=== PATIENT | female | born 1970 | race African-American/Black ===

== ENCOUNTER 2019-11-23 12:16 | Outpatient (CLI) | payer OTHER, SELFPAY ==
[2019-11-23 12:32] LABS: Basophils Percent Auto 0.2 % (0.2-1.2); Eosinophils Percent Auto 0.7 % (0-4.4); Hemoglobin 13.2 g/dL (12.0-15.0); Immature Granulocyte Absolute 0.02 K/mm3 (0.00-0.031); Immature Granulocyte Percent A 0.3 % (0-0.5); Lymphocytes Absolute Auto 2.17 K/mm3 (0.9-3.2); Lymphocytes Percent Auto 37.5 % (18.3-44.2); Mean Corpuscular HGB Conc 32.2 g/dl (32-36); Mean Corpuscular Hemoglobin 28.6 pg (26-34); Mean Corpuscular Volume 88.9 fl (80-100); Mean Platelet Volume 9.3 fl (7.4-10.4); Monocytes Absolute Auto 0.4 K/mm3 (0.1-0.6); Monocytes Percent Auto 7.3 % (2.6-8.5); Neutrophils Absolute Auto 3.1 K/mm3 (1.3-6.7); Platelet Count Result 318 k/mm3 (150-375); Red Blood Count 4.61 M/mm3 (4.2-5.4); White Blood Count 5.8 K/mm3 (4.5-10.0)
[2019-11-23 12:53] LABS: Sodium 137 mmol/L (137-145)
[2019-11-23 13:01] LABS: Hemoglobin A1C 6.1 % (<5.7)
[2019-11-23 13:05] LABS: Alanine Aminotransferase 25 U/L (4-35); Albumin Level 4.2 g/dL (3.5-5.1); Alkaline Phosphatase 113 U/L (38-126); Aspartate Amino Transferase 23 U/L (14-36); Bilirubin,Total 0.4 mg/dL (0.2-1.3); Blood Urea Nitrogen 14 mg/dL (7-17); Calcium 9.3 mg/dL (8.4-10.2); Carbon Dioxide 27 mmol/L (22-30); Chloride 102 mmol/L (98-107); Cholesterol 226 mg/dL (0-200); Estimated Glomerular Filt Rate > 60; Glucose 96 mg/dL (65-105); HDL Direct 37 mg/dL; LDL Cholesterol Direct 153 mg/dL; Potassium 4.3 mmol/L (3.4-5.0); Triglycerides 95 mg/dL (<150)
[2019-11-23 13:22] LABS: Thyroid Stimulating Hormone 0.984 uIU/mL (0.465-4.680)
== END 2019-11-23 12:17 | disposition home or self-care (01) ==
PROVIDERS: PCP Family Medicine; Visit Provider Family Medicine
DX: I10 Essential (primary) hypertension (principal); E04.9 Nontoxic goiter, unspecified; R73.01 Impaired fasting glucose; E78.2 Mixed hyperlipidemia
CPT/HCPCS: 36415; 80053; 80061; 83036; 84443; 85025

== ENCOUNTER 2020-03-07 09:04 | Outpatient (CLI) | payer OTHER, SELFPAY ==
--- NOTE | ~2020-03-07 | MM_ITS ---
EXAMINATION: MM screening [facility] w [facility]anor HISTORY: Screening TECHNIQUE: Craniocaudal and mediolateral oblique 3-D tomosynthesis images were obtained and synthetic 2-D images were generated. CAD analysis was submitted and interpreted. COMPARISON: Comparison to multiple prior studies sequentially, with oldest reviewed study dated 08/2015. BREAST PARENCHYMAL COMPOSITION: There are scattered areas of fibroglandular density. FINDINGS: There is no evidence of suspicious mass, calcification, or architectural distortion to sugg est malignancy in either breast. There has been no suspicious interval change. IMPRESSION: 1. No mammographic evidence of malignancy. 2. Recommend routine screening mammography in one year. BI-RADS Category 1: Negative Reviewed, dictated and finalized at location A.
== END 2020-03-07 09:05 | disposition home or self-care (01) ==
LOC: ANHIMG 09:06
PROVIDERS: PCP Family Medicine; Visit Provider Obstetrics & Gynecology
DX: Z12.31 Encounter for screening mammogram for malignant neoplasm of breast (principal)
CPT/HCPCS: 77063; 77067

== ENCOUNTER → 2021-01-11 04:04 | Outpatient (CLI) | payer OTHER, SELFPAY ==
[2021-01-12 01:35] LABS: SARS-CoV-2 RNA PCR Negative
== END ==
PROVIDERS: PCP Family Medicine; Visit Provider Physician Assistant
DX: R68.89 Other general symptoms and signs (principal); Z20.822 Contact with and (suspected) exposure to COVID-19
CPT/HCPCS: C9803; U0003; U0005

== ENCOUNTER 2021-04-05 07:42 | Outpatient (CLI) | payer OTHER, SELFPAY ==
--- NOTE | ~2021-04-05 | MM_ITS ---
EXAMINATION: MM screening [facility] BI w nicanor HISTORY: Screening mammogram TECHNIQUE: Craniocaudal and mediolateral oblique 3-D tomosynthesis images were obtained and synthetic 2-D images were generated. CAD analysis was submitted and interpreted. COMPARISON: 03/07/2020, 10/11/2018 BREAST PARENCHYMAL COMPOSITION: The breasts are almost entirely fatty. FINDINGS: There is no evidence of suspicious mass, calcification, or architectural distortion to sugg est malignancy in either breast. There has been no suspicious interval change. IMPRESSION: 1. No mammographic evidence of malignancy. 2. Recommend routine screening mammography in one year. BI-RADS Category 1: Negative Reviewed, dictated and finalized at location A. FILLER
== END 2021-04-05 07:43 | disposition home or self-care (01) ==
LOC: ANHIMG 07:43
PROVIDERS: PCP Family Medicine; Visit Provider Obstetrics & Gynecology
DX: Z12.31 Encounter for screening mammogram for malignant neoplasm of breast (principal)
CPT/HCPCS: 77063; 77067

== ENCOUNTER 2021-04-10 15:28 | Outpatient (CLI) | payer OTHER, SELFPAY ==
--- NOTE | ~2021-04-10 | XR_ITS ---
EXAMINATION: XR foot RT min 3V DATE: 04/10/2021 15:57 INDICATION: Lateral right foot pain and swelling. TECHNIQUE: 4 views of right foot were obtained. COMPARISON: None. FINDINGS: There is mild hallux valgus. No fracture. There is mild osteoarthritis of talonavicular edgar nt. IMPRESSION: 1. No fracture. Reviewed, dictated and finalized at location A. LOPE ADDRESSER IMPRESSION: 1. No fracture.
[2021-04-10 16:23] LABS: Alanine Aminotransferase 16 U/L (4-35); Albumin Level 4.2 g/dL (3.5-5.1); Alkaline Phosphatase 113 U/L (38-126); Anion Gap 7 mmol/L (8-16); Aspartate Amino Transferase 17 U/L (14-36); Bilirubin,Total 0.2 mg/dL (0.2-1.3); Blood Urea Nitrogen 13 mg/dL (7-17); Carbon Dioxide 25 mmol/L (22-30); Chloride 106 mmol/L (98-107); Estimated Glomerular Filt Rate > 60; Glucose 94 mg/dL (65-110); Potassium 4.3 mmol/L (3.4-5.0); Sodium 138 mmol/L (137-145)
[2021-04-10 16:49] LABS: Calcium 9.7 mg/dL (8.4-10.2)
== END 2021-04-10 15:29 | disposition home or self-care (01) ==
PROVIDERS: PCP Family Medicine; Visit Provider Family Medicine
DX: M79.671 Pain in right foot (principal); I10 Essential (primary) hypertension
CPT/HCPCS: 36415; 73630; 80053

== ENCOUNTER → 2021-05-02 07:29 | Outpatient (CLI) | payer OTHER, SELFPAY ==
--- NOTE | ~2021-05-02 | MR_ITS ---
EXAMINATION: MR ankle RT wo con DATE: 05/02/2021 08:39 INDICATION: Posterior tibial tendon dysfunction with right foot and ankle pain and swelling, weakness and limited range of motion. TECHNIQUE: Magnetic resonance imaging (MRI) of the right ankle was performed without intravenous cont rast. Sequences included sagittal, coronal, and axial proton-density weighted fast spin echo without and with fat saturation. COMPARISON: None. FINDINGS: Medial ankle ligaments: Deep and superficial deltoid ligaments as well as the spring ligament are normal. Lateral ankle ligaments: The anterior and posterior inferior tibiofibular ligaments are normal. The anterior talofibular, calc aneofibular and posterior talofibular ligaments are normal. Tendons: Achilles tendon is normal. The peroneus longus and brevis tendons are normal. The tibialis anterior a nd extensor hallucis longus and extensor digitorum longus tendons are normal. The tibialis posterior, flexor digitorum longus and flexor hallucis longus tendons are normal. Plantar fascia: Plantar aponeurosis is normal. Bones/other: Bone alignment is normal. Mild mild subarticular edema along both sides of the dorsal aspect of the r eticulation between the cuboid and the lateral cuneiform without evident fracture line which could be related to osteoarthritis or bone contusion. Otherwise normal marrow signal with no fracture or path ologic marrow replacing process. Remaining joint spaces are normal. There is nonspecific feathery mus cular edema throughout the extensor digitorum brevis muscle at the dorsum of the midfoot. Fluid: Physiologic amount fluid in the joint spaces. Minimal increased fluid surrounding the tibialis call center support representative ior tendon and peroneal tendons at the level of the distal tibia and fibula consistent with mild teno synovitis. There is mild subcutaneous edema both medially and laterally at the ankle along the call center support representative ior medial margin of the distal tibia and anterolateral margin of the distal fibula. IMPRESSION: 1. Edema at both sides of the configuration between the cuboid and the lateral cuneiform which could be related to osteoarthritis or potentially bone contusion without evident fracture. 2. Nonspecific mild edema in the extensor digitorum brevis muscle which could be related to trauma, r eactive edema related to the suspected underlying bone contusion, acute denervation change or nonspec ific myositis which could be infectious, an active disease, rheumatologic or other inflammatory etiol ogy. 3. Minimal tenosynovitis along the is normal peroneal tendons and normal posterior tibial tendon. Reviewed, dictated and finalized at location D. OSE DEPARTMENT WORKER IMPRESSION: 1. Edema at both sides of the configuration between the cuboid and the lateral cuneiform which could be related to osteoarthritis or potentially bone contusio n without evident fracture. 2. Nonspecific mild edema in the extensor digitorum brevis muscle which could b e related to trauma, reactive edema related to the suspected underlying bone co ntusion, acute denervation change or nonspecific myositis which could be infect ious, an active disease, rheumatologic or other inflammatory etiology. 3. Minimal tenosynovitis along the is normal peroneal tendons and normal call center support representative ior tibial tendon.
== END ==
PROVIDERS: PCP Family Medicine; Visit Provider Podiatrist Foot & Ankle Surgery
DX: M76.821 Posterior tibial tendinitis, right leg (principal)
CPT/HCPCS: 73721

== ENCOUNTER 2021-05-13 00:33 | Day surgery (SDC) | payer OTHER, SELFPAY ==
[2021-04-16 13:56] VITALS: BMI 39.4
[2021-05-13 07:05] VITALS: BP 141/98; PULSE 97; RESP 18; TEMP 36; O2SAT 96; BMI 40.3
[2021-05-13] MEDS: LACTATED RINGERS 1,000 ML 30 ML IV CONT (07:13)
--- NOTE | 2021-05-13 07:40 | WPDANESEPPF ---
Anes - Initial Pre Proc Eval Procedure: Operation Date: 05/13/21 08:00 Proposed Procedures p Screening Colonoscopy - Romario Tapia MD Date/Time: 05/13/21 07:40 Surgeon: Romario Tapia MD Pre Op Diagnosis: neoplasm screening Patient Data Age: 50 Gender: F Height: 1.75 m Weight: 123.9 kg Last Vital Signs Temp 36.0 C L 05/13/21 07:05 Pulse 97 05/13/21 07:05 Resp 18 05/13/21 07:05 BP 141/98 H 05/13/21 07:05 Pulse Ox 96 05/13/21 07:05 Allergies Allergy/AdvReac Type Severity Reaction Status Date / Time Iodinated Contrast Media Allergy Mild rash Verified 05/13/21 07:04 iodine Allergy Mild rash Verified 05/13/21 07:04 lactose Allergy Unknown Unknown Verified 05/13/21 07:04 topiramate Allergy Unknown confusion Verified 05/13/21 07:04 [facility]ant [[facility]] AdvReac Intermediate confusion Verified 05/13/21 07:04 Home Medications Medication Instructions Recorded Confirmed Type amlodipine 5 mg-benazepril 20 mg 1 cap PO DAILY #90 cap 03/26/21 05/13/21 Rx capsule hydrochlorothiazide 25 mg tablet 25 mg PO DAILY #90 tablet 04/10/21 05/13/21 Rx solifenacin 5 mg tablet 5 mg PO DAILY #42 tablet 04/10/21 05/13/21 Rx omeprazole 20 mg capsule,delayed 20 mg PO DAILY #90 cap 04/19/21 05/13/21 Rx release rosuvastatin 5 mg tablet See Rx Instructions .ROUTE 04/19/21 05/13/21 Rx .COMPLEX #30 tablet sertraline 25 mg tablet See Rx Instructions .ROUTE 04/20/21 05/13/21 Rx .COMPLEX #90 tablet Patient hx anesthesia problems: none Family hx anesthesia problems: none Results Review: All pre-operative results and documents have been reviewed as part of the pre-operative evaluation. [facility] Past Medical History Medical History Acute flank pain Anxiety Benign essential HTN Elevated fasting glucose Headache Hypertension MDD (major depressive disorder) Migraine Miscarriage SID (obstructive sleep apnea) Surgical History Surgical History H/O dilation and curettage H/O tubal ligation S/P endometrial ablation S/P partial hysterectomy [place] teeth removed Family History Family History Grandparent Cerebrovascular accident Father Family history of diabetes mellitus in first degree relative Hypertension Family history of elevated blood lipids Mother Family history of malignant neoplasm of breast in first degree relative, Onset Age: 40 Hypertension Family history of elevated blood lipids Other Diabetes mellitus Family history of arthritis Family history of malignant neoplasm Family history of malignant neoplasm of breast Social History Social History Social History: Smoking status: Never smoker Second hand tobacco smoke exposure: No Alcohol intake: current Alcohol use details: Pt drinks once a month Substance use: never Substance use type: does not use Living arrangements: with family Gender identity (if verbalized by the patient): Female Sexual Orientation (if Verbalized by the Patient): Straight or Heterosexual Anes - Eval Final PreProcedure Day of Procedure 05/13/21 07:40 Patient weight: morbidly obese Heart: regular rate and rhythm Lungs: clear to auscultation Airway: Mallampati scale class III Neurological: alert and oriented Last oral intake: >/= 8 hours ASA classification: III Emergent: no Anesthetic plan: proceed Anesthesia type and monitoring: general GIVS and standard monitoring Results Review: All pre-operative results and documents have been reviewed as part of the pre-operative evaluation. Informed Consent: The patient's anesthetic plan and its attendant risks and benefits were discussed with the patient/family/POA. Questions were solicited and answers provided to the satisfaction of the
--- NOTE | 2021-05-13 08:07 | PM.HPGS ---
History of Present Illness History of Present Illness Consent: Risks, benefits, and alternatives have been discussed and questions answered. Patient agrees to proceed with procedure. Chief complaint: neoplasm screening Narrative: Enma Flores is a 50 year old female here for first screening colonoscopy Review of Systems Constitutional: Constitutional: Denies headache(s) and Denies weakness Eyes: Eyes: Denies blurry vision ENT: Reports Normal hearing present, Denies headache(s) and Denies neck pain Cardiovascular: Cardiovascular: Denies chest pain and Denies dyspnea Respiratory: Respiratory: Denies dyspnea Gastrointestinal: Gastrointestinal: Reports no additional gastrointestinal complaints Genitourinary: Genitourinary: Denies dysuria Musculoskeletal: Musculoskeletal: Denies neck pain Integumentary/Breasts: Skin/Breast: Denies dry skin Neurologic: Reports Normal hearing present, Denies headache(s) and Denies weakness Psychiatric: Psychiatric: Denies anxiety Endocrine: Endocrine: Denies change in body appearance Hematologic/Lymphatic: Hematologic/Lymphatic: Denies easy bleeding Allergic/Immunologic: Allergic/Immunologic: Denies urticaria PMF Past Medical History Medical History (Updated 05/13/21 @ 08:08 by Romario Tapia MD) Acute flank pain Anxiety Benign essential HTN Colon cancer screening Elevated fasting glucose Headache Hypertension MDD (major depressive disorder) Migraine Miscarriage SID (obstructive sleep apnea) Surgical History Surgical History H/O dilation and curettage H/O tubal ligation S/P endometrial ablation S/P partial hysterectomy [place] teeth removed Family History Family History Grandparent Cerebrovascular accident Father Family history of diabetes mellitus in first degree relative Hypertension Family history of elevated blood lipids Mother Family history of malignant neoplasm of breast in first degree relative, Onset Age: 40 Hypertension Family history of elevated blood lipids Other Diabetes mellitus Family history of arthritis Family history of malignant neoplasm Family history of malignant neoplasm of breast Social History Social History Social History: Smoking status: Never smoker Second hand tobacco smoke exposure: No Alcohol intake: current Alcohol use details: Pt drinks once a month Substance use: never Substance use type: does not use Living arrangements: with family Gender identity (if verbalized by the patient): Female Sexual Orientation (if Verbalized by the Patient): Straight or Heterosexual Meds Home Medications and Allergies Home Medications Medication Instructions Recorded Confirmed Type amlodipine 5 mg-benazepril 20 mg 1 cap PO DAILY #90 cap 03/26/21 05/13/21 Rx capsule hydrochlorothiazide 25 mg tablet 25 mg PO DAILY #90 tablet 04/10/21 05/13/21 Rx solifenacin 5 mg tablet 5 mg PO DAILY #42 tablet 04/10/21 05/13/21 Rx omeprazole 20 mg capsule,delayed 20 mg PO DAILY #90 cap 04/19/21 05/13/21 Rx release rosuvastatin 5 mg tablet See Rx Instructions .ROUTE 04/19/21 05/13/21 Rx .COMPLEX #30 tablet sertraline 25 mg tablet See Rx Instructions .ROUTE 04/20/21 05/13/21 Rx .COMPLEX #90 tablet Allergies Allergy/AdvReac Type Severity Reaction Status Date / Time Iodinated Contrast Media Allergy Mild rash Verified 05/13/21 07:04 iodine Allergy Mild rash Verified 05/13/21 07:04 lactose Allergy Unknown Unknown Verified 05/13/21 07:04 topiramate Allergy Unknown confusion Verified 05/13/21 07:04 suvorexant [From [facility]] AdvReac Intermediate confusion Verified 05/13/21 07:04 Vital Signs Vital Signs - 24 hr 05/13/21 07:05 Temperature 96.8 F L Pulse Rate 97 Respiratory Rate 18 Blood Pressure 141/98 H Pulse
[2021-05-13 08:30] VITALS: BP 119/68; PULSE 85; RESP 21; O2SAT 99
[2021-05-13 08:40] VITALS: BP 118/72; PULSE 79; RESP 13; O2SAT 95
[2021-05-13 08:50] VITALS: BP 117/72; PULSE 74; RESP 21; O2SAT 98
== END 2021-05-13 09:08 | disposition home or self-care (01) ==
PROVIDERS: PCP Family Medicine; Visit Provider Internal Medicine Gastroenterology
PROC: 0DJD8ZZ Inspection of Lower Intestinal Tract, Via Natural or Artificial Opening Endoscopic (ICD-10-PCS; CPT 45378; principal; 2021-05-13 08:00)
DX: Z12.11 Encounter for screening for malignant neoplasm of colon (principal); K64.8 Other hemorrhoids; I10 Essential (primary) hypertension; G47.33 Obstructive sleep apnea (adult) (pediatric); F41.8 Other specified anxiety disorders; E66.01 Morbid (severe) obesity due to excess calories; Z68.41 Body mass index [BMI] 40.0-44.9, adult
CPT/HCPCS: 45378; J2704; J7120

== ENCOUNTER 2021-05-14 12:47 | Emergency (ER) | payer OTHER, SELFPAY ==
--- NOTE | 2021-05-14 12:59 | ED.GENADULT ---
HPI - General Adult General Chief complaint: Upper Respiratory Infection Stated complaint: tired/chest pain s/p colonoscopy Time Seen by Provider: 05/14/21 12:50 Source: patient and RN notes reviewed History of Present Illness HPI narrative: Patient is a 50-year-old female who presents the urgent care with complaints of extreme fatigue. Patient states that she had an colonoscopy yesterday and has been sleeping since the colonoscopy and felt increased fatigue this morning. Patient is denying of any shortness of breath or chest pain. Denies of any recent fevers, nausea or vomiting. Patient states that her son is at home with influenza and she feels that she may have the flu . Patient has not taken anything for her symptoms. Patient states that she did follow-up with her surgeon this morning and they told her to get checked for the flu but symptoms seem to be typical for dehydration and advised the patient to rest. No other complaints. No acute distress noted. Patient aware of the plan of care. Some parts of this dictation were generated by voice recognition software and may contain typographical and/or grammatical inaccuracies. Related Data Allergies Allergy/AdvReac Type Severity Reaction Status Date / Time Iodinated Contrast Media Allergy Mild rash Verified 05/14/21 13:00 iodine Allergy Mild rash Verified 05/14/21 13:00 lactose Allergy Unknown Unknown Verified 05/14/21 13:00 topiramate Allergy Unknown confusion Verified 05/14/21 13:00 suvorexant [From [facility]] AdvReac Intermediate confusion Verified 05/14/21 13:00 Review of Systems Review of Systems: CONSTITUTIONAL: Denies fever, chills, or sweats. Reports of fatigue EYES: Denies visual changes, redness, or discharge. ENT: Denies rhinorrhea, congestion, sore throat, or otalgia. CARDIOVASCULAR: Denies chest pain, palpitations, or edema. RESPIRATORY: Denies cough or dyspnea. GASTROINTESTINAL: Denies abdominal pain, nausea, vomiting, or diarrhea. GENITOURINARY: Denies dysuria or hematuria. SKIN: Denies rash or itching. MUSCULOSKELETAL: Reports of mid to low back pain NEUROLOGIC: Denies headache, numbness, or weakness. All other systems reviewed are negative, except as documented in HPI. [facility] Past Medical History Medical History (Updated 05/14/21 @ 13:22 by Melyssa E. Springman, JOURNEYMAN WIREMAN) Acute flank pain Anxiety Benign essential HTN Colon cancer screening Elevated fasting glucose Headache Hypertension MDD (major depressive disorder) Migraine Miscarriage SID (obstructive sleep apnea) Surgical History Surgical History H/O dilation and curettage H/O tubal ligation S/P endometrial ablation S/P partial hysterectomy [place] teeth removed Family History Family History Grandparent Cerebrovascular accident Father Family history of diabetes mellitus in first degree relative Hypertension Family history of elevated blood lipids Mother Family history of malignant neoplasm of breast in first degree relative, Onset Age: 40 Hypertension Family history of elevated blood lipids Other Diabetes mellitus Family history of arthritis Family history of malignant neoplasm Family history of malignant neoplasm of breast Social History Social History Social History: Smoking status: Never smoker Second hand tobacco smoke exposure: No Alcohol intake: current Alcohol use details: Pt drinks once a month Substance use: never Substance use type: does not use Gender identity (if verbalized by the patient): Female Sexual Orientation (if Verbalized by the Patient): Straight or Heterosexual Comments At the time of my signature, I reviewed and agree with the nursing past medical, surgical, social, and family history. There is no relevant family history pertinent to the patient complaint.
[2021-05-14 13:04] VITALS: BP 122/64; PULSE 100; RESP 16; TEMP 36.1; O2SAT 100
== END 2021-05-14 13:29 | disposition home or self-care (01) ==
PROVIDERS: Emergency Provider Nurse Practitioner Family; PCP Family Medicine
DX: R53.83 Other fatigue (principal); I10 Essential (primary) hypertension; G47.33 Obstructive sleep apnea (adult) (pediatric); Z90.711 Acquired absence of uterus with remaining cervical stump; F41.9 Anxiety disorder, unspecified; F32.9 Major depressive disorder, single episode, unspecified
CPT/HCPCS: 99211; G0463

== ENCOUNTER → 2021-05-20 02:43 | Outpatient (CLI) | payer OTHER, SELFPAY ==
[2021-05-20 18:04] LABS: Influenza Control Positive
[2021-05-21 03:58] LABS: SARS-CoV-2 RNA PCR Negative
== END ==
PROVIDERS: PCP Family Medicine; Visit Provider Nurse Practitioner Gerontology
DX: R50.9 Fever, unspecified (principal); Z20.822 Contact with and (suspected) exposure to COVID-19
CPT/HCPCS: 87804; C9803; U0003; U0005

== ENCOUNTER 2021-06-28 12:50 | Emergency (ER) | payer OTHER, SELFPAY ==
--- NOTE | 2021-06-28 13:04 | ED.EYEPROB ---
HPI - Eye Problem General Chief complaint: Eye Problems Stated complaint: Eye pain Time Seen by Provider: 06/28/21 13:05 Source: patient and RN notes reviewed Mode of arrival: ambulatory Limitations: no limitations History of Present Illness HPI Narrative: 51-year-old female presented for complaint of bilateral eye redness, sensitivity to light, and tenderness to touch for about 4 days. Endorses history of the same but this time is more severe. States it has been improving over the last 2 days. At onset she endorses sensitivity to even a night light, and eyes were more bloodshot. Denies vision changes/floaters. States the last time it was related to migraine and stress. She was scheduled with her PCP but was unable to make the appointment due to the snow. She has taken medication for migraine. Did not apply anything to the eyes. Denies contact lenses or contact with any smoke or other irritant. Works from home. MD chief complaint: eye pain Related Data Allergies Allergy/AdvReac Type Severity Reaction Status Date / Time Iodinated Contrast Media Allergy Mild rash Verified 06/11/21 15:36 iodine Allergy Mild rash Verified 06/11/21 15:36 lactose Allergy Unknown Unknown Verified 06/11/21 15:36 topiramate Allergy Unknown confusion Verified 06/11/21 15:36 suvorexant [From [facility]] AdvReac Intermediate confusion Verified 06/11/21 15:36 Review of Systems Review of Systems: CONSTITUTIONAL: Denies body aches, fever, chills EYES:Endorses swelling, redness and pain to bilateral eyes, photophobia; denies FB sensation ENT: Denies rhinorrhea, congestion, sore throat, or otalgia. CARDIOVASCULAR: Denies chest pain, palpitations RESPIRATORY: Denies cough or dyspnea. GASTROINTESTINAL: Denies abdominal pain, nausea, vomiting, or diarrhea. SKIN: Denies rash, itching, or wounds. MUSCULOSKELETAL: Denies back pain, joint pain, or myalgia. NEUROLOGIC: Denies headache, numbness, tingling, or weakness. PSYCH: Denies depression or anxiety. All systems reviewed & are unremarkable except as noted in HPI and below PMFSH Past Medical History Medical History Acute flank pain Anxiety Benign essential HTN Colon cancer screening Elevated fasting glucose Headache Hypertension MDD (major depressive disorder) Migraine Miscarriage SID (obstructive sleep apnea) Surgical History Surgical History H/O dilation and curettage H/O tubal ligation S/P endometrial ablation S/P partial hysterectomy [place] teeth removed Family History Family History Grandparent Cerebrovascular accident Father Family history of diabetes mellitus in first degree relative Hypertension Family history of elevated blood lipids Mother Family history of malignant neoplasm of breast in first degree relative, Onset Age: 40 Hypertension Family history of elevated blood lipids Other Diabetes mellitus Family history of arthritis Family history of malignant neoplasm Family history of malignant neoplasm of breast Social History Social History Social History: Smoking status: Never smoker Second hand tobacco smoke exposure: No Alcohol intake: current Alcohol use details: Pt drinks once a month Substance use: never Substance use type: does not use Gender identity (if verbalized by the patient): Female Sexual Orientation (if Verbalized by the Patient): Straight or Heterosexual Comments At time of signature, I have reviewed and agree with nursing past medical, surgical, social and family history unless otherwise noted. Please see nursing chart for further information. There is no relevant family history pertinent to the presenting complaint Exam Narrative: GENERAL: Well-appearing, well-nourished, and in no acute distress.
[2021-06-28 13:05] VITALS: BP 145/81; PULSE 105; RESP 16; TEMP 36.9; O2SAT 100
== END 2021-06-28 13:45 | disposition home or self-care (01) ==
PROVIDERS: Emergency Provider Nurse Practitioner Family; PCP Family Medicine
DX: H57.89 Other specified disorders of eye and adnexa (principal); I10 Essential (primary) hypertension; G47.33 Obstructive sleep apnea (adult) (pediatric)
CPT/HCPCS: 99213; A9270; G0463

== ENCOUNTER 2021-11-06 11:23 | Emergency (ER) | payer OTHER, SELFPAY ==
--- NOTE | 2021-11-06 11:26 | ED.URI ---
HPI - URI/Sore Throat General Chief Complaint: Upper Respiratory Infection Stated Complaint: cough,sore throat,fatigue Time Seen by Provider: 11/06/21 11:26 Source: patient and RN notes reviewed History of Present Illness HPI Narrative: Patient is a 51-year-old female who presents the urgent care with complaints of sore throat, cough and fatigue. Patient states that her throat only hurts when she coughs. Denies a fever, nausea or vomiting. Patient has taken Zyrtec, Tylenol, ibuprofen and DayQuil without much symptom relief. Denies of any ill contacts. Patient had COVID in April. No other acute complaints. No acute distress noted. Patient aware of the plan of care. Some parts of this dictation were generated by voice recognition software and may contain typographical and/or grammatical inaccuracies. Related Data Home Medications Medication Instructions Recorded Confirmed oxybutynin chloride 10 mg tablet PO 11/06/21 tablet,extended release 24 hr ubrogepant 50 mg tablet (Ubrelvy) 1 tablet PO USEASDIRECTD 11/06/21 11/06/21 Allergies Allergy/AdvReac Type Severity Reaction Status Date / Time Iodinated Contrast Media Allergy Mild rash Verified 11/06/21 11:41 iodine Allergy Mild rash Verified 11/06/21 11:41 lactose Allergy Unknown Unknown Verified 11/06/21 11:41 topiramate Allergy Unknown confusion Verified 11/06/21 11:41 suvorexant [From [facility]] AdvReac Intermediate confusion Verified 11/06/21 11:41 Review of Systems Review of Systems: CONSTITUTIONAL: Denies fever, chills, or sweats. Reports of fatigue EYES: Denies visual changes, redness, or discharge. ENT: Reports of sore throat, congestion and postnasal drainage CARDIOVASCULAR: Denies chest pain, palpitations, or edema. RESPIRATORY: Reports of dry cough without dyspnea GASTROINTESTINAL: Denies abdominal pain, nausea, vomiting, or diarrhea. GENITOURINARY: Denies dysuria or hematuria. SKIN: Denies rash or itching. MUSCULOSKELETAL: Denies back pain, joint pain, or myalgia. NEUROLOGIC: Denies headache, numbness, or weakness. All other systems reviewed are negative, except as documented in HPI. [facility] Past Medical History Medical History Acute flank pain Anxiety Benign essential HTN Colon cancer screening Elevated fasting glucose Headache Hypertension MDD (major depressive disorder) Migraine Miscarriage SID (obstructive sleep apnea) Surgical History Surgical History H/O dilation and curettage H/O tubal ligation S/P endometrial ablation S/P partial hysterectomy [place] teeth removed Family History Family History Grandparent Cerebrovascular accident Father Family history of diabetes mellitus in first degree relative Hypertension Family history of elevated blood lipids Mother Family history of malignant neoplasm of breast in first degree relative, Onset Age: 40 Hypertension Family history of elevated blood lipids Other Diabetes mellitus Family history of arthritis Family history of malignant neoplasm Family history of malignant neoplasm of breast Social History Social History (Updated 07/01/21 @ 13:31 by Tawanna Serrano) Social History: Smoking status: Never smoker Second hand tobacco smoke exposure: No Alcohol intake: current Alcohol use details: Pt drinks once a month Substance use: never Substance use type: does not use Gender identity (if verbalized by the patient): Female Sexual Orientation (if Verbalized by the Patient): Straight or Heterosexual Comments At the time of my signature, I reviewed and agree with the nursing past medical, surgical, social, and family history. There is no relevant family history pertinent to the patient complaint. Exam Narrative: GENERAL: This is a well-nourished, well-developed patient, in no apparent distress.
[2021-11-06 11:33] VITALS: BP 142/64; PULSE 92; RESP 16; TEMP 36.9; O2SAT 99
== END 2021-11-06 12:07 | disposition home or self-care (01) ==
PROVIDERS: Emergency Provider Nurse Practitioner Family
DX: J06.9 Acute upper respiratory infection, unspecified (principal); Z20.822 Contact with and (suspected) exposure to COVID-19; I10 Essential (primary) hypertension; G47.33 Obstructive sleep apnea (adult) (pediatric); F41.9 Anxiety disorder, unspecified; F32.9 Major depressive disorder, single episode, unspecified
CPT/HCPCS: 87426; 87804; 99213; C9803; G0463

== ENCOUNTER 2021-12-11 10:12 | Emergency (ER) | payer OTHER, SELFPAY ==
--- NOTE | 2021-12-11 10:17 | ED.URI ---
HPI - URI/Sore Throat General Chief Complaint: Upper Respiratory Infection Stated Complaint: sore throat, headache,fatigued Time Seen by Provider: 12/11/21 10:17 Source: patient Mode of arrival: ambulatory Limitations: no limitations History of Present Illness HPI Narrative: Ms. Flores is a 51-year-old female patient presenting to the clinic today with complaints of sore throat, headache, and fatigue x2 days. She reports she has had positive exposure to COVID. She denies any fever or chills. She denies any shortness of breath or chest pain. Related Data Home Medications Medication Instructions Recorded Confirmed oxybutynin chloride 10 mg 1 tablet PO DAILY 11/06/21 11/06/21 tablet,extended release 24 hr ubrogepant 50 mg tablet (Ubrelvy) 1 tablet PO USEASDIRECTD 11/06/21 11/06/21 Allergies Allergy/AdvReac Type Severity Reaction Status Date / Time Iodinated Contrast Media Allergy Mild rash Verified 12/11/21 10:30 iodine Allergy Mild rash Verified 12/11/21 10:30 lactose Allergy Unknown Unknown Verified 12/11/21 10:30 topiramate Allergy Unknown confusion Verified 12/11/21 10:30 suvorexant [From [facility]] AdvReac Intermediate confusion Verified 12/11/21 10:30 Review of Systems Review of Systems: Pertinent positives per HPI. Patient denies any fever, chills, rash, visual changes, dizziness, runny nose, shortness of breath, chest pain, palpitations, nausea, vomiting, diarrhea, constipation, abdominal pain, or any urinary issues. PMFSH Past Medical History Medical History Acute flank pain Anxiety Benign essential HTN Colon cancer screening Elevated fasting glucose Headache Hypertension MDD (major depressive disorder) Migraine Miscarriage SID (obstructive sleep apnea) Surgical History Surgical History H/O dilation and curettage H/O tubal ligation S/P endometrial ablation S/P partial hysterectomy [place] teeth removed Family History Family History Grandparent Cerebrovascular accident Father Family history of diabetes mellitus in first degree relative Hypertension Family history of elevated blood lipids Mother Family history of malignant neoplasm of breast in first degree relative, Onset Age: 40 Hypertension Family history of elevated blood lipids Other Diabetes mellitus Family history of arthritis Family history of malignant neoplasm Family history of malignant neoplasm of breast Social History Social History Social History: Smoking status: Never smoker Second hand tobacco smoke exposure: No Alcohol intake: current Alcohol use details: Pt drinks once a month Substance use: never Substance use type: does not use Gender identity (if verbalized by the patient): Female Sexual Orientation (if Verbalized by the Patient): Straight or Heterosexual Comments At the time of my signature, I reviewed and agree with the nursing past medical, surgical, social, and family history. There is no relevant family history pertinent to the patient complaint. Exam Narrative: General: Well-developed, obese, in no apparent distress Head: Normocephalic, atraumatic Eyes: Pupils equally round and reactive to light bilaterally, EOM intact, sclera and conjunctive clear, no discharge, lids normal Ears: TMs intact and clear, ear canals clear, no drainage, grossly hearing normal. Nose: Nares patent, clear nasal discharge, mild inflammation, no sinus tenderness. Mouth: Oropharynx without lesions or masses, good dentition, MMM. Postnasal drip Neck: Supple, trachea midline, mild enlargement of anterior cervical nodes, no thyroid masses or goiter palpable. Cardio: Regular rate and rhythm, s1 and s2 normal, no murmur appreciated. Resp: Clear to aus
[2021-12-11 10:28] VITALS: BP 134/91; PULSE 100; RESP 18; TEMP 36.7
== END 2021-12-11 11:10 | disposition home or self-care (01) ==
LOC: EXPGOSH 10:23
PROVIDERS: Emergency Provider Nurse Practitioner Family
DX: B34.9 Viral infection, unspecified (principal); Z20.822 Contact with and (suspected) exposure to COVID-19; I10 Essential (primary) hypertension; G47.33 Obstructive sleep apnea (adult) (pediatric)
CPT/HCPCS: 87081; 87426; 87880; 99213; C9803; G0463

== ENCOUNTER 2021-12-15 11:48 | Outpatient (CLI) | payer OTHER, SELFPAY ==
--- NOTE | ~2021-12-15 | XR_ITS ---
EXAMINATION: XR chest 2V 12/15/2021 12:29 INDICATION: Covid Symptoms PROCEDURE: 2 view chest COMPARISON: 05/23/2005 FINDINGS: The lungs are clear. The cardiomediastinal silhouette is within normal limits. There are no pleural effusions. There is no pneumothorax suspected. IMPRESSION: 1: NO ACUTE CARDIOPULMONARY DISEASE. Reviewed, dictated and finalized at location A.
== END 2021-12-15 11:49 | disposition home or self-care (01) ==
PROVIDERS: PCP Family Medicine; Visit Provider Physician Assistant
DX: R09.89 Other specified symptoms and signs involving the circulatory and respiratory systems (principal)
CPT/HCPCS: 71046

== ENCOUNTER → 2021-12-20 00:01 | Outpatient (CLI) | payer OTHER, SELFPAY ==
[2021-12-20 10:56] LABS: SARS-CoV-2 RNA PCR Negative
== END ==
PROVIDERS: Physician Assistant; PCP Family Medicine; Visit Provider Family Medicine
DX: R05.9 Cough, unspecified (principal); Z20.822 Contact with and (suspected) exposure to COVID-19
CPT/HCPCS: C9803; U0003; U0005

== ENCOUNTER 2022-07-02 08:46 | Outpatient (CLI) | payer OTHER, SELFPAY ==
[2022-07-02 09:21] LABS: Basophils Percent Auto 0.3 % (0.2-1.2); Eosinophils Absolute Auto 0.1 K/mm3 (0-0.3); Eosinophils Percent Auto 0.8 % (0-4.4); Hematocrit 40.7 % (37.0-47.0); Hemoglobin 13.2 g/dL (12.0-15.0); Immature Granulocyte Absolute 0.01 K/mm3 (0.00-0.031); Immature Granulocyte Percent A 0.2 % (0-0.5); Lymphocytes Absolute Auto 2.37 K/mm3 (0.9-3.2); Mean Corpuscular HGB Conc 32.4 g/dl (32-36); Mean Corpuscular Hemoglobin 27.7 pg (26-34); Mean Corpuscular Volume 85.5 fl (80-100); Mean Platelet Volume 9.3 fl (7.4-10.4); Monocytes Absolute Auto 0.5 K/mm3 (0.1-0.6); Monocytes Percent Auto 7.8 % (2.6-8.5); Neutrophils Absolute Auto 3.5 K/mm3 (1.3-6.7); Neutrophils Percent Auto 53.9 % (45.5-73.1); Platelet Count Result 326 k/mm3 (150-375); Red Blood Count 4.76 M/mm3 (4.2-5.4); Red Cell Distribution Width 14.8 % (11.5-14.5); White Blood Count 6.4 K/mm3 (4.5-10.0)
[2022-07-02 11:16] LABS: Alanine Aminotransferase 25 U/L (6-35); Albumin Level 4.2 g/dL (3.5-5.1); Alkaline Phosphatase 129 U/L (38-126); Anion Gap 5 mmol/L (8-16); Aspartate Amino Transferase 22 U/L (14-36); Bilirubin,Total 0.4 mg/dL (0.2-1.3); Blood Urea Nitrogen 10 mg/dL (7-17); Calcium 9.3 mg/dL (8.4-10.2); Carbon Dioxide 30 mmol/L (22-30); Chloride 106 mmol/L (98-107); Cholesterol 172 mg/dL (0-200); Estimated Glomerular Filt Rate > 60; Glucose 103 mg/dL (65-110); HDL Direct 34 mg/dL; Potassium 4.3 mmol/L (3.4-5.0); Sodium 141 mmol/L (137-145); Triglycerides 69 mg/dL (<150)
[2022-07-02 11:27] LABS: LDL Cholesterol Direct 97 mg/dL
== END 2022-07-02 08:47 | disposition home or self-care (01) ==
LOC: ANHLAB 08:47
PROVIDERS: PCP Family Medicine; Visit Provider Family Medicine
DX: E78.2 Mixed hyperlipidemia (principal); I10 Essential (primary) hypertension; R73.01 Impaired fasting glucose
CPT/HCPCS: 36415; 80053; 80061; 83036; 85025

== ENCOUNTER 2022-07-08 08:01 | Outpatient (CLI) | payer OTHER, SELFPAY ==
--- NOTE | ~2022-07-08 | US_ITS ---
US thyroid INDICATION: Nontoxic multinodular goiter TECHNIQUE: Real-time sonographic images of the thyroid gland were obtained. COMPARISON: Ultrasound dated 08/29/2016 FINDINGS: The right thyroid lobe measures 6.2 x 2.9 x 2.3 cm. The left thyroid lobe measures 5.7 x 2 .4 x 2.1 cm. In the right lobe there is a mixed solid and cystic hypoechoic mass measuring 2.3 x 1.8 x 1.8 cm, stable. In the left lobe there is a slightly hypoechoic mass measuring 1.6 x 0.9 x 2.6 cm, new since prior examination. This mass is solid, hypoechoic, wider than tall, smoothly marginated wit hout internal echogenic foci, TR 4. There is normal vascularity. IMPRESSION: 1. New solid hypoechoic left thyroid mass measuring 1.6 cm. Ultrasound-guided left sided fine-needle aspiration biopsy recommended. Reviewed, dictated and finalized at location A. [employer]
== END 2022-07-08 08:02 | disposition home or self-care (01) ==
PROVIDERS: PCP Family Medicine; Visit Provider Family Medicine
DX: E04.2 Nontoxic multinodular goiter (principal)
CPT/HCPCS: 76536

== ENCOUNTER 2022-07-30 14:43 | Outpatient (CLI) | payer OTHER, SELFPAY ==
[2022-07-30 20:49] LABS: Thyroid Stimulating Hormone 0.691 uIU/mL (0.465-4.680)
== END 2022-07-30 14:44 | disposition home or self-care (01) ==
LOC: ANHGOSHLAB 14:44
PROVIDERS: PCP Family Medicine; Visit Provider Otolaryngology
DX: E04.2 Nontoxic multinodular goiter (principal); E07.9 Disorder of thyroid, unspecified
CPT/HCPCS: 36415; 84443

== ENCOUNTER 2022-08-25 08:00 | Outpatient (CLI) | payer OTHER, SELFPAY | END 2022-08-25 08:01 | disposition home or self-care (01) | PROVIDERS: PCP Family Medicine; Visit Provider Physician Assistant | DX: R19.7 Diarrhea, unspecified (principal) | CPT/HCPCS: 87045; 87177; 87209; 87427 ==

== ENCOUNTER 2022-09-22 12:48 | Outpatient (CLI) | payer OTHER, SELFPAY ==
--- NOTE | ~2022-09-22 | US_ITS ---
EXAMINATION: US FNA w image guidance DATE: 09/22/2022 13:42 INDICATION: Left thyroid nodule. TECHNIQUE: The procedure and its benefits and risks were discussed with the patient. Risks specifically discusse d included bleeding. The patient verbalized understanding of the risks and agreed to proceed. The nec k was prepped and draped in the usual sterile manner. 1% lidocaine was used for local anesthesia. 6 passes were made with a 25G needle into the lesion under ultrasound guidance. There were no immedia te complications. FINDINGS: Grayscale ultrasound images demonstrate needles advanced into a 1.6 cm left thyroid nodule for biopsy . IMPRESSION: 1. Ultrasound-guided fine needle aspiration of a left thyroid nodule. Reviewed, dictated and finalized at location A.
== END 2022-09-22 12:49 | disposition home or self-care (01) ==
PROVIDERS: PCP Family Medicine; Visit Provider Otolaryngology
DX: E04.1 Nontoxic single thyroid nodule (principal)
CPT/HCPCS: 10005; 88173; 88305

== ENCOUNTER 2022-11-17 08:10 | Outpatient (CLI) | payer OTHER, SELFPAY ==
--- NOTE | ~2022-11-17 | MM_ITS ---
EXAMINATION: MM screening ofelia BI w nicanor HISTORY: Screening mammogram TECHNIQUE: Craniocaudal and mediolateral oblique 3-D tomosynthesis images were obtained and synthetic 2-D images were generated. Bilateral rotated lateral CC views. CAD analysis was submitted and interp reted. COMPARISON: 04/05/2021, 03/07/2020, 10/11/2018 bilateral screening mammogram examinations BREAST PARENCHYMAL COMPOSITION: The breasts are almost entirely fatty. FINDINGS: Biopsy marker on the right adjacent to a low-density circumscribed opacity with benign supe rficial calcification; history of prior benign right breast biopsy. There is no evidence of suspiciou s mass, calcification, or architectural distortion to suggest malignancy in either breast. There has been no suspicious interval change. IMPRESSION: 1. No mammographic evidence of malignancy. 2. Recommend routine screening mammography in one year. BI-RADS Category 2: Benign finding(s). Reviewed, dictated and finalized at location A.
== END 2022-11-17 08:11 | disposition home or self-care (01) ==
LOC: ANHIMG 08:15
PROVIDERS: PCP Family Medicine; Visit Provider Obstetrics & Gynecology
DX: Z12.31 Encounter for screening mammogram for malignant neoplasm of breast (principal)
CPT/HCPCS: 77063; 77067

== ENCOUNTER 2022-11-28 10:10 | Emergency (ER) | payer OTHER, SELFPAY ==
[2022-11-28 10:47] VITALS: BP 132/85; PULSE 85; RESP 16; TEMP 36.6; O2SAT 100
[2022-11-28 10:49] VITALS: BP 132/85; PULSE 85; RESP 16; TEMP 36.6; O2SAT 100
--- NOTE | 2022-11-28 11:18 | ED.URI ---
HPI - URI/Sore Throat General Chief Complaint: Upper Respiratory Infection Stated Complaint: ear pain,right face pain,cough Source: patient Mode of arrival: ambulatory Limitations: no limitations History of Present Illness HPI Narrative: 52-year-old female presents to the [facility] today complaining bilateral ear pain. Patient stated on she developed pain in her left ear that has migrated into her right ear as well. Patient states since then the pain has gotten increasingly worsened especially on the right ear. Patient denies feeling any fluid in her ears or any hearing problems. Patient states having a scratchy throat but denies any pain. Patient denies any cough, congestion, fever, chills, or any other pain. Patient rates the pain in her years a 9/10 on a scale of 1-10. Patient describes the pain in her ears as an intense ache that is nonradiating that is worse with eating or coughing. Related Data Allergies Allergy/AdvReac Type Severity Reaction Status Date / Time Iodinated Contrast Media Allergy Mild rash Verified 11/28/22 10:48 iodine Allergy Mild rash Verified 11/28/22 10:48 lactose Allergy Unknown Unknown Verified 11/28/22 10:48 topiramate Allergy Unknown confusion Verified 11/28/22 10:48 suvorexant [From [facility]] AdvReac Intermediate confusion Verified 11/28/22 10:48 Review of Systems Review of Systems: CONSTITUTIONAL: Denies fever, chills, or sweats. EYES: Denies visual changes, redness, or discharge. ENT: Positive for bilateral otalgia CARDIOVASCULAR: Denies chest pain, palpitations, or edema. RESPIRATORY: Denies cough or dyspnea. GASTROINTESTINAL: Denies abdominal pain, nausea, vomiting, or diarrhea. GENITOURINARY: Denies dysuria or hematuria. SKIN: Denies rash or itching. MUSCULOSKELETAL: Denies back pain, joint pain, or myalgia. NEUROLOGIC: Denies headache, numbness, or weakness. Pertinent positives per HPI. [facility] Past Medical History Medical History (Updated 11/28/22 @ 11:26 by Prabha Patten, [employer]) Abnormal mammogram Acute bronchitis Acute flank pain Acute gastritis Anxiety Anxiety Benign essential HTN Blepharoconjunctivitis Body mass index 38.0-38.9, adult (03/09/19) Chest congestion Chondromalacia patellae, left knee Chronic right shoulder pain Cluster headache syndrome, unspecified, not intractable Colon cancer screening Cough Dietary counseling and surveillance (11/30/17) Elevated cholesterol Elevated fasting glucose Elevated glucose Environmental allergies Essential (primary) hypertension Exposure to COVID-19 virus Family planning counseling Fever Flat foot, acquired Foot pain, bilateral Gastro-esophageal reflux disease without esophagitis Gastroenteritis Goiter Headache HH (hiatus hernia) Hypertension Impacted cerumen, right ear Influenza Lipid screening MDD (major depressive disorder) Menopausal symptom Migraine Migraine without aura Miscarriage Mixed hyperlipidemia Nausea in adult Obesity, unspecified Obstructive sleep apnea (adult) (pediatric) SID (obstructive sleep apnea) Otitis media Right foot sprain Rt flank pain Sensation of fullness in right ear SI (sacroiliac) joint dysfunction Strep throat Vitamin D deficiency, unspecified Surgical History Surgical History H/O dilation and curettage H/O tubal ligation S/P endometrial ablation S/P partial hysterectomy [place] teeth removed Family History Family History Grandparent Cerebrovascular accident Father Family history of diabetes mellitus in first degree relative Hypertension Family history of elevated blood lipids Mother Family history of malignant neoplasm of breast in first degree relative, Onset Age: 40 Hypertension Family history of elevated blood lipids Other Diabetes mellitus Family history of arthritis Family history of malignant neoplasm Family history of malignant ne
== END 2022-11-28 11:34 | disposition home or self-care (01) ==
PROVIDERS: Emergency Provider Nurse Practitioner Family; PCP Family Medicine
DX: H66.91 Otitis media, unspecified, right ear (principal); I10 Essential (primary) hypertension; E78.00 Pure hypercholesterolemia, unspecified; E78.2 Mixed hyperlipidemia; E66.9 Obesity, unspecified; Z68.41 Body mass index [BMI] 40.0-44.9, adult
CPT/HCPCS: 99213; G0463

== ENCOUNTER 2023-02-06 16:47 | Emergency (ER) | payer BC, SELFPAY ==
--- NOTE | 2023-02-06 16:54 | ED.URI ---
HPI - URI/Sore Throat General Chief Complaint: Upper Respiratory Infection Stated Complaint: Strep symtoms Time Seen by Provider: 02/06/23 16:54 Source: patient Mode of arrival: ambulatory Limitations: no limitations History of Present Illness HPI Narrative: 52-year-old female presents with complaint cough, sore throat and fatigue. Reports patient reports that she was diagnosed with COVID on January 27. Patient reports that she finished packs loaded on February 01. Reports that cough is lingering and sore throat is now worse. Afebrile. No chest pain or shortness of breath. Denies nausea vomiting. All systems reviewed and negative except as noted above. Related Data Allergies Allergy/AdvReac Type Severity Reaction Status Date / Time Iodinated Contrast Media Allergy Mild rash Verified 02/06/23 16:56 iodine Allergy Mild rash Verified 02/06/23 16:56 lactose Allergy Unknown Unknown Verified 02/06/23 16:56 topiramate Allergy Unknown confusion Verified 02/06/23 16:56 suv[facility]xant [[facility]] AdvReac Intermediate confusion Verified 02/06/23 16:56 Review of Systems Review of Systems: CONSTITUTIONAL: Denies fever, chills, or sweats. Reports fatigue. EYES: Denies visual changes, redness, or discharge. ENT: Denies rhinorrhea, congestion. Reports sore throat. Denies otalgia. CARDIOVASCULAR: Denies chest pain, palpitations, or edema. RESPIRATORY: Reports cough. Denies dyspnea. GASTROINTESTINAL: Denies abdominal pain, nausea, vomiting, or diarrhea. GENITOURINARY: Denies dysuria or hematuria. SKIN: Denies rash or itching. MUSCULOSKELETAL: Denies back pain, joint pain, or myalgia. NEUROLOGIC: Denies headache, numbness, or weakness. PSYCHIATRIC: Denies anxiety or depression. All other systems reviewed are negative, except as documented in HPI. [facility] Past Medical History Medical History (Reviewed 12/02/22 @ 14:43 by Carolina Cross [facility]) Abnormal mammogram Acute bronchitis Acute flank pain Acute gastritis Anxiety Anxiety Benign essential HTN Blepharoconjunctivitis Body mass index 38.0-38.9, adult (03/09/19) Chest congestion Chondromalacia patellae, left knee Chronic right shoulder pain Cluster headache syndrome, unspecified, not intractable Colon cancer screening Cough Dietary counseling and surveillance (11/30/17) Elevated cholesterol Elevated fasting glucose Elevated glucose Environmental allergies Essential (primary) hypertension Exposure to COVID-19 virus Family planning counseling Fever Flat foot, acquired Foot pain, bilateral Gastro-esophageal reflux disease without esophagitis Gastroenteritis Goiter Headache HH (hiatus hernia) Hypertension Impacted cerumen, right ear Influenza Lipid screening MDD (major depressive disorder) Menopausal symptom Migraine Migraine without aura Miscarriage Mixed hyperlipidemia Nausea in adult Obesity, unspecified Obstructive sleep apnea (adult) (pediatric) SID (obstructive sleep apnea) Otitis media Right foot sprain Rt flank pain Sensation of fullness in right ear SI (sacroiliac) joint dysfunction Strep throat Vitamin D deficiency, unspecified Surgical History Surgical History H/O dilation and curettage H/O tubal ligation S/P endometrial ablation S/P partial hysterectomy [place] teeth removed Family History Family History Grandparent Cerebrovascular accident Father Family history of diabetes mellitus in first degree relative Hypertension Family history of elevated blood lipids Mother Family history of malignant neoplasm of breast in first degree relative, Onset Age: 40 Hypertension Family history of elevated blood lipids Other Diabetes mellitus Family history of arthritis Family history of malignant neoplasm Family history of malignant neoplasm of breast Social History Social History (Reviewed 12/02/22 @ 14:43 by Carolina
[2023-02-06 17:06] VITALS: BP 136/94; PULSE 110; RESP 16; TEMP 36.2; O2SAT 98
== END 2023-02-06 17:19 | disposition home or self-care (01) ==
PROVIDERS: Emergency Provider Nurse Practitioner Family; PCP Family Medicine
DX: J06.9 Acute upper respiratory infection, unspecified (principal); R05.9 Cough, unspecified; I10 Essential (primary) hypertension; E78.00 Pure hypercholesterolemia, unspecified; K21.9 Gastro-esophageal reflux disease without esophagitis; E78.2 Mixed hyperlipidemia; E66.9 Obesity, unspecified; Z68.31 Body mass index [BMI] 31.0-31.9, adult; F41.9 Anxiety disorder, unspecified; F32.9 Major depressive disorder, single episode, unspecified
CPT/HCPCS: 87081; 87880; 99213; G0463